=== PATIENT | male | born 1980 | race Hispanic/Latino ===

== ENCOUNTER 2016-09-24 23:50 | Emergency (ER) | payer OTHER, BC ==
[~2016-09-24] VITALS: Ht 160 cm; Wt 74.8 kg
[~2016-09-24 23:50] MED LIST: HYDR-3731 PO
[2016-09-25] MEDS ORDERED: NAPR220C11 PO (00:07)
[2016-09-25] MEDS ORDERED: RX-HYDROCODONE/APAP 5/325 MG #4 TAB PK PO ONE (00:27)
[2016-09-25] MEDS ORDERED: DEXAMETHASONE PF 10 MG/ML (DECADRON) VIAL ONE (00:27)
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
[2016-09-25] MEDS ORDERED: DICL50TA4 PO (00:28)
[2016-09-25] MEDS ORDERED: RX-HYDROCODONE/APAP 5/325 MG #4 TAB PK PO PRN (00:30)
[2016-09-25] MEDS ORDERED: DEXAMETHASONE PF 10 MG/ML (DECADRON) VIAL IM ONE (00:30)
[2016-09-25 00:40] VITALS: BP 112/80
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
== END 2016-09-25 00:40 | disposition home or self-care (01) ==
LOC: EDUNIT# 23:50 → ER 23:56
DX: S49.92XA Unspecified injury of left shoulder and upper arm, initial encounter; X58.XXXA Exposure to other specified factors, initial encounter
CPT/HCPCS: 96372; 99284

== ENCOUNTER 2018-04-27 13:04 | Emergency (ER) | payer OTHER, BC ==
[~2018-04-27] VITALS: Ht 162.6 cm; Wt 72.6 kg
[~2018-04-27 13:04] MED LIST changes: +DICL50TA4 PO; +NAPR220C11 PO
[2018-04-27] MEDS ORDERED: TETANUS,DIPTH,PERTUSS P/F (BOOSTRIX) 0.5 ML VIAL IM ONE ×2 (13:27→13:45)
[2018-04-27] MEDS ORDERED: ONDANSETRON 4 MG/2 ML (SDV) Z0FRAN ONE (13:27)
[2018-04-27] MEDS ORDERED: LORazepam INJ 2 MG/ML (ATIVAN) VIAL ONE (13:28)
--- NOTE | 2018-04-27 13:28 | NUR ---
Boostrix injection given at this time. Boostrix pulled stock and administered. Unable to cancel Pablo Avalos order for duplicate order. Lot number [id number], expiration 12/21/18. Injection given in L deltoid.
[2018-04-27 13:38] LABS: BASOPHILS # (AUTO) 0.1 10^3/uL (0.0-0.1); BASOPHILS % (AUTO) 1 % (0-10); EOSINOPHILS # (AUTO) 0.4 10^3/uL (0.0-0.3); EOSINOPHILS % (AUTO) 3 % (0-10); HEMATOCRIT 44 % (40-54); HEMOGLOBIN 15.5 G/DL (13.3-17.7); LYMPHOCYTES # (AUTO) 4.3 X 10^3 (1.0-4.0); LYMPHOCYTES % (AUTO) 32 % (12-44); MEAN CORPUSCULAR HEMOGLOBIN 30 PG (25-34); MEAN CORPUSCULAR HGB CONC 35 G/DL (32-36); MEAN CORPUSCULAR VOLUME 84 FL (80-99); MEAN PLATELET VOLUME 11.2 FL (7.4-10.4); MONOCYTES % (AUTO) 7 % (0-12); NEUTROPHILS # (AUTO) 7.6 X 10^3 (1.8-7.8); NEUTROPHILS % (AUTO) 57 % (42-75); PLATELET COUNT 186 10^3/uL (130-400); RED CELL DISTRIBUTION WIDTH 13.4 % (10.0-14.5); WHITE BLOOD COUNT 13.3 10^3/uL (4.3-11.0)
[2018-04-27] MEDS ORDERED: ONDANSETRON 4 MG/2 ML (SDV) Z0FRAN IVP ONE (13:45)
[2018-04-27] MEDS ORDERED: LIDOCAINE/EPI 2% 1:100,00 (XYLOCAINE) 20 ML VIAL INJ ONE (13:45)
[2018-04-27] MEDS ORDERED: LORazepam INJ 2 MG/ML (ATIVAN) VIAL IVP PRN (13:45)
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
[2018-04-27] MEDS ORDERED: AMOX500C2 PO (14:45)
[2018-04-27 14:54] VITALS: BP 139/89
[2018-04-27] MEDS ORDERED: AMOXICILLIN 500 MG (POLYMOX) CAP PO ONE (15:05)
[2018-04-27] MEDS ORDERED: AMOXICILLIN 250 MG (POLYMOX) CAP PO SCH (15:15)
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
== END 2018-04-27 15:15 | disposition home or self-care (01) ==
LOC: EDUNIT# 13:04 → ER 13:05
DX: S02.2XXA Fracture of nasal bones, initial encounter for closed fracture (principal); S01.81XA Laceration without foreign body of other part of head, initial encounter; R40.2142 Coma scale, eyes open, spontaneous, at arrival to emergency department; R40.2252 Coma scale, best verbal response, oriented, at arrival to emergency department; R40.2362 Coma scale, best motor response, obeys commands, at arrival to emergency department; Z23 Encounter for immunization; Y08.89XA Assault by other specified means, initial encounter
CPT/HCPCS: 36415; 70450; 70486; 71046; 73060; 73090; 85025